=== PATIENT | female | born 1995 | race Caucasian/White ===

== ENCOUNTER 2016-07-25 12:41 | Emergency (ER) | payer BC ==
[2016-07-25 12:56] VITALS: TEMP 97.8; BMI 29.2
--- NOTE | 2016-07-25 13:21 | PDOC ---
History of Present Illness <Rich Bangura - Last Filed: 07/25/16 15:52> - General History Source: Patient, Parent(s) Exam Limitations: No Limitations - History of Present Illness Initial Comments: 07/25/16 13:42 The patient is a 21 year old female with no significant past medical history, presenting to the Emergency Department with a worsening headache that started yesterday. The patient reports that yesterday she had a dull, diffuse headache, that was similar to headaches that she experiences with caffeine. She reports that this morning she woke up with a worse headache, that is now constant at the left side of her head, with intermittent sharp pains to the left side of her head which she describes as stabbing. She admits to a feeling of her left eyelid drooping, and slight sensitivity to light, but denies visual changes. She admits to taking 600 ibuprofen yesterday with little relief. She has not taken any medication for the pain today, and has not had coffee today. The patients mother admits that she took the patients vitals this morning which were normal. The patient admits to being on oral control, with a medication change March. The patient denies nausea, or vomiting. Patient denies blurry vision, double vision, or visual changes. Patient denies dizziness, or lightheadedness. Patient denies head trauma, or loss of consciousness. Patient denies fever, chills, and cough. Social Hx: denies cigarette smoking <Isa Carrillo - Last Filed: 07/25/16 15:59> - General Chief Complaint: Headache Stated Complaint: HEADACHE Time Seen by Provider: 07/25/16 13:18 Past History - Past Medical History Cardiac Disorders: No (BRADYCARDIA) - Psycho/Social/Smoking Cessation Hx Suicidal Ideation: No Smoking History: Never smoked Hx Alcohol Use: No Drug/Substance Use Hx: No Substance Use Type: None <Rich Bangura - Last Filed: 07/25/16 15:52> <Isa Carrillo - Last Filed: 07/25/16 15:59> - Past Medical History Allergies/Adverse Reactions: Allergies Allergy/AdvReac Type Severity Reaction Status Date / Time No Known Allergies Allergy Verified 07/25/16 12:56 Home Medications: Ambulatory Orders NK [No Known Home Medication] 07/25/16 Review of Systems - Review of Systems Constitutional: No: Chills, Fever HEENTM: No: Recent change in vision, Double Vision, Nose Congestion, Throat Swelling Respiratory: No: Cough, Shortness of Breath ABD/GI: No: Nausea, Vomiting Neurological: Yes: Headache. No: Paresthesia, Tingling, Weakness All Other Systems: Reviewed and Negative <WillemRich - Last Filed: 07/25/16 15:52> *Physical Exam - Vital Signs Last Vital Signs Temp Pulse Resp BP Pulse Ox 97.8 F 58 L 20 131/70 100 07/25/16 12:52 07/25/16 12:52 07/25/16 12:52 07/25/16 12:52 07/25/16 12:52 <Rich Bangura - Last Filed: 07/25/16 15:52> - Vital Signs Last Vital Signs Temp Pulse Resp BP Pulse Ox 97.8 F 58 L 20 131/70 100 07/25/16 12:52 07/25/16 12:52 07/25/16 12:52 07/25/16 12:52 07/25/16 12:52 - Physical Exam Comments: 07/25/16 13:42 GENERAL: The patient is awake, alert, and fully oriented, in no acute distress. HEAD: Normal with no signs of trauma. EYES: Pupils equal, round and reactive to light, extraocular movements intact, sclera anicteric, conjunctiva clear with no pallor. ENT: Ears normal, nares patent, oropharynx clear without exudates. Moist mucous membranes. NECK: Normal range of motion, supple without lymphadenopathy, JVD, or masses. LUNGS: Breath sounds equal, clear to auscultation bilaterally. No wheeze/ crackles. HEART: Regular rate and rhythm, normal S1 and S2 without murmur or rub. ABDOMEN: Soft/nontender/nondistended. BS wnl. No guarding or rebound. No palpable masses. No hepatosplenomegaly. EXTREMITIES: Normal range of motion, no edema. No clubbing or cyanosis. No cords, erythema, or tenderness. NEURO: Mental status: The patient is alert and oriented x3. Cranial nerves: Cranial nerves II through XII are intact Motor: The upper extremities are 5 over 5 in all muscle groups. The lower extremities are 5 over 5 in all muscle groups. No pronator drift. Sensation: Sensation is intact to light touch throughout. Cerebellar: Agfxfh-lepshi-[id number] is normal in both upper extremities. Heel-knee- ladd is normal in both lower extremities. Reflexes: 2+ and symmetric in the upper and lower extremities. Gait: Normal. Heel and toe walking are normal. Tandem gait is normal. PSYCH: Normal mood, normal affect. SKIN: Warm, Dry, normal turgor, no rashes or lesions noted. <Isa Carrillo - Last Filed: 07/25/16 15:59> ED Treatment Course - LABORATORY CBC & Chemistry Diagram: 07/25/16 13:55 07/25/16 13:55 <Rich Bangura - Last Filed: 07/25/16 15:52> - LABORATORY CBC & Chemistry Diagram: 07/25/16 13:55 07/25/16 13:55 - RADIOLOGY Radiograph Interpretation: 07/25/16 15:[address] As reviewed by Dr. Neptali Davis IMPRESSION: No evidence of a focal intracranial lesion or hemorrhage seen. <Isa Carrillo - Last Filed: 07/25/16 15:59> Medical Decision Making - Medical Decision Making 07/25/16 13:39 A portion of this note was documented by scribe services under my direction. I have reviewed the details of the note, within reason, and agree with the documentation with the following case summary and management plan written by me. Healthy 21-year-old female on oral contraceptives presents with headache. Symptoms began as mild, diffuse, dull headache yesterday typical of her previous headaches that she attributes to caffeine intake. Coffee yesterday helped the headache slightly, ibuprofen did not. She had no other symptoms, slept well overnight, and after awaking normally this morning noted that her headache had become more left-sided, more severe in nature, and had sharp exacerbations. Mild photophobia, but no vision disturbance, no speech disturbance, no neck stiffness/fever/chills/nausea/vomiting. No head injury. Did not take any medications, parents are nurses and she was brought to the ED for evaluation. Vital signs normal. Well-appearing, comfortable, seated in stretcher with eyes open and full sentences No head tenderness or sinus tenderness Neck is supple NEURO: Mental status: The patient is alert and oriented x3. Cranial nerves: Cranial nerves II through XII are intact Motor: The upper extremities are 5 over 5 in all muscle groups. The lower extremities are 5 over 5 in all muscle groups. No pronator drift. Sensation: Sensation is intact to light touch throughout. Cerebellar: Ovffzb-[id number]-[id number] is normal in both upper extremities. Heel-knee- ladd is normal in both lower extremities. Reflexes: 2+ and symmetric in the upper and lower extremities. Gait: Normal. Heel and toe walking are normal. Tandem gait is normal. 21-year-old female with gradual onset headache since yesterday, now more sharp and unilateral. Presentation seems more consistent with migraine/cluster headache, no other red flags on history or physical exam. Patient is on OCP but has no other hypercoagulable risk factors, seems atypical for venous sinus thrombosis. Urine Will check head CT IV fluids, Reglan, consider Toradol Reassess 07/25/16 15:53 Urine negative, feels much better after Reglan, pain went from 8 to 3. Remains neurologically intact. CT negative for acute pathology. Given toradol to complete pain management, remains neuro intact, smiling and laughing, she and mom agree with d/c plan and understand return criteria. <Rich Bangura - Last Filed: 07/25/16 15:52> *DC/Admit/Observation/Transfer <Rich Bangura - Last Filed: 07/25/16 15:52> - Attestations Scribe Attestion: 07/25/16 13:43 Documentation prepared by Isa Carrillo, acting as medical charge entry specialist for Rich Bangura MD. <Isa Carrillo - Last Filed: 07/25/16 15:59> Diagnosis at time of Disposition: Headache Qualifiers: Headache type: unspecified Headache chronicity pattern: acute headache Intractability: not intractable Qualified Code(s): R51 - Headache - Discharge Dispostion Disposition: HOME - Referrals Referrals: Adair Trejo MD [Staff Physician] - - Patient Instructions Printed Discharge Instructions: DI for Headache Additional Instructions: Activity as tolerated. Stay very well hydrated. Tylenol 1000 mg every 8 hours and/or ibuprofen 600 mg every 8 hours as needed for pain. A CT scan today showed no acute abnormalities. You should follow up with your primary doctor and a neurologist (consider calling Dr. Trejo) as soon as possible regarding today's emergency department visit. If symptoms persist, an MRI may be necessary. Return to the emergency department for any new or concerning symptoms, particularly worsening headache, fever/chills, vomiting or vision change.
[2016-07-25] MEDS ORDERED: SODIUM CHLORIDE 1,000 ML IV ONE (13:34)
[2016-07-25] MEDS ORDERED: METOCLOPRAMIDE HCL INJECTION 10 MG/2 ML VIAL IVPB ONE (13:34)
[2016-07-25] MEDS ORDERED: METOCLOPRAMIDE HCL INJECTION 10 MG/2 ML VIAL ONE (14:01)
[2016-07-25 14:17] LABS: BASOPHIL 0.4 % (0-2.0); EOSINOPHIL 0.9 % (0-4.5); MCH 30.1 pg (25.7-33.7); MEAN CELL VOLUME 88.4 fl (80-96); MEAN PLT VOLUME 8.1 fl (7.5-11.1); NEUTROPHILS 52.9 % (42.8-82.8); PLATELET COUNT 241 K/MM3 (134-434); RDW 12.7 % (11.6-15.6); WHITE BLOOD COUNT 5.5 K/mm3 (4.0-10.0)
[2016-07-25 14:26] LABS: ALBUMIN 3.8 g/dl (3.4-5.0); ALK PHOS 50 U/L (45-117); ANION GAP 9 (8-16); BILIRUBIN,TOTAL 0.3 mg/dL (0.2-1.0); CALCIUM 8.8 mg/dL (8.5-10.1); CO2 24 mmol/L (21-32); CREATININE 0.7 mg/dL (0.55-1.02); GLUCOSE,RANDOM 80 mg/dL (74-106); SGOT/AST 17 U/L (15-37); SGPT/ALT 24 U/L (12-78)
[2016-07-25] MEDS ORDERED: KETOROLAC TROMETHAMINE 30 MG/1 ML VIAL IVPUSH ONE (15:44)
[2016-07-25] MEDS ORDERED: KETOROLAC TROMETHAMINE 30 MG/1 ML VIAL ONE (15:59)
[2016-07-25 16:21] VITALS: BP 128/64; PULSE 60
== END 2016-07-25 16:25 | disposition home or self-care (01) ==
LOC: JER 12:41
PROC: 3E033GC Introduction of Other Therapeutic Substance into Peripheral Vein, Percutaneous Approach (ICD-10-PCS; principal; 2016-07-25)
PROC: 3E0333Z Introduction of Anti-inflammatory into Peripheral Vein, Percutaneous Approach (ICD-10-PCS; 2016-07-25)
DX: R51 Headache (principal)
CPT/HCPCS: 36415; 70450-TC; 80053; 84703; 85025; 99283-25